=== PATIENT | male | born 1940 | race Caucasian/White ===

== ENCOUNTER 2022-05-19 18:30 | Inpatient (IN) | payer MEDICARE, SELFPAY ==
[2022-05-19] VITALS (7 sets, daily range): BP systolic 141–198; BP diastolic 86–115; PULSE 68–102; RESP 20–24; TEMP 36.9; O2SAT 91–95
--- NOTE | 2022-05-19 19:06 | XRR_ITS ---
PROCEDURE INFORMATION: Exam: XR Chest Exam date and time: 05/19/2022 7:25 PM Age: 81 years old Clinical indication: Injury or trauma; Fall; Blunt trauma (contusions or hematomas); Additional info: AMS TECHNIQUE: Imaging protocol: Radiologic exam of the chest. Views: 1 view. COMPARISON: No relevant prior studies available. FINDINGS: Lungs: Unremarkable. No consolidation. Pleural spaces: Unremarkable. No pleural effusion. No pneumothorax. Heart/Mediastinum: Unremarkable. No cardiomegaly. Bones/joints: Multiple rotator cuff repair anchors noted in the right humeral head. Visualized osseous structures are intact. XR/XR chest 1V portable [id number] IMPRESSION: No acute findings.
--- NOTE | 2022-05-19 19:06 | CTR_ITS ---
PROCEDURE INFORMATION: Exam: CT Head Without Contrast Exam date and time: 05/19/2022 7:34 PM Age: 81 years old Clinical indication: Injury or trauma; Fall; Blunt trauma (contusions or hematomas); Consciousness not specified; Altered mental status/memory loss; Age related cognitive decline; Additional info: AMS TECHNIQUE: Imaging protocol: Computed tomography of the head without contrast. Radiation optimization: All CT scans at this facility use at least one of these dose optimization techniques: automated exposure control; mA and/or kV adjustment per patient size (includes targeted exams where dose is matched to clinical indication); or iterative reconstruction. REPORTING DATA: Count of CT and Cardiac NM exams in prior 12 months: This patient has received 0 known CTs and 0 known cardiac nuclear medicine studies in the 12 months prior to the current study. COMPARISON: No relevant prior studies available. RADIATION DOSE METRICS: Total DLP (mGy-cm): 1425.98 FINDINGS: Brain: No hemorrhage. No edema. Moderate diffuse cerebral atrophy and sequela of chronic small vessel ischemic disease. No mass effect. Cerebral ventricles: No ventriculomegaly. Paranasal sinuses: Opacified right maxillary sinus. The rest of the paranasal sinuses are well pneumatized. Mastoid air cells: Visualized mastoid air cells are well aerated. Bones/joints: Unremarkable. No acute fracture. Soft tissues: Unremarkable. CT/CT head wo con* [id number] IMPRESSION: No acute intracranial abnormality.
--- NOTE | 2022-05-19 19:10 | W.ED.FALL ---
HPI - Fall General: Chief Complaint: Fall Stated Complaint: FALL Time Seen by Provider: 05/19/22 18:33 Source: patient and EMS History of Present Illness: 81-year-old gentleman who was last seen yesterday at home. He has found in the floor soaked in urine this evening in his home. He complains of some back pain. He is cold. He is a poor historian. No other complaints. He does not know how long he was down. complaint: fall Onset (ago): unknown Fall from: standing Fall witnessed: no Place fall occurred: home Loss of consciousness: Unsure Prolonged down time: yes (Likely) Symptoms prior to fall: other (Unknown) Context: other (Unknown) Associated symptoms-after fall: Reports confusion; Denies abdominal pain or chest pain Review of Systems General: Reports: ROS unobtainable due to mental status Card: Denies: chest pain GI: Denies: abdominal pain Neuro: Reports: confusion PFSH ED PFSH: Medical History (Updated 05/20/22 @ 23:40 by Bipin Powers DO) Diastolic dysfunction, left ventricle Dizziness Hypertension Surgical History (Updated 05/19/22 @ 23:28 by Dima Clemente MD) Surgical history unknown Social History (Updated 05/19/22 @ 23:29 by Dima Clemente MD) Smoking and tobacco status: former smoker Alcohol intake: never Substance/Drug Use: unknown Caregiver/support person: Yes Lives independently: Yes Household members: none Housing: House Marital status: / Physical Exam Const: GENERAL APPEARANCE: cooperative, lethargic, ill appearing and frail appearing NUTRITIONAL APPEARANCE: thin ORIENTATION/CONSCIOUSNESS: Yes lethargic HENMT: COMMON NORMALS: normocephalic and Normal external nose present HEAD & SCALP: normocephalic FACE & SINUS: face symmetric NOSE: Normal external nose present Eye: COMMON NORMALS: Equal, round and reactive pupils present and EOMs intact bilaterally PUPIL: Yes Equal, round and reactive pupils present Neck/C-Spine: GENERAL: Yes trachea midline CERVICAL SPINE: No pain with cervical ROM and No Cervical spine tenderness Chest: COMMONS NORMALS: normal inspection of the chest CHEST: Yes Symmetrical chest wall rise Resp: COMMON NORMALS: No use of accessory muscles EFFORT & INSPECTION: Yes tachypneic AUSCULTATION: diminished lung sounds Cardio: COMMON NORMALS: regular rate and regular rhythm RATE: regular rate RHYTHM: regular rhythm Extremity: NARRATIVE EXTREMITY EXAM: Exam bilateral lower extremities reveals cool extremities with mildly delayed capillary refill. Ulcers to 4 feet indicative of vascular disease. Neuro: RANDY COMA SCALE: document GCS findings [place] coma scale eye opening: Spontaneous Randy coma scale verbal response: Confused [place] coma scale motor response: Obey commands [place] coma scale total score: 14 SENSORIUM/ORIENTATION: Yes lethargic Psych: COMMON NORMALS: cooperative Course Vital Signs: Vital signs: Vital Signs Temperature 98.5 F 05/20/22 19:30 Pulse Rate 78 05/20/22 20:13 Respiratory Rate 16 05/20/22 20:13 Blood Pressure 108/70 05/20/22 19:30 Pulse Oximetry 93 05/20/22 20:13 Oxygen Delivery Me thod 05/20/22 20:13 Oxygen Flow Rate 2 05/20/22 20:13 MDM - Fall Medical Decision Making 81 year old gentleman who spent an unknown amount of time down on the floor. He is significantly weak period he has some mild mental status changes. He does not have focal symptoms of stroke. He seems to be relatively free of injury otherwise. He does have significant rhabdomyolysis, and will need admission. Hospitalist agrees to admit. Lab Data 05/19/22 19:21 05/19/22 19:21 Radiology Impressions Chest X-Ray 05/19/22 19:06 IMPRESSION: No acute findings. Head CT 05/19/22 19:06 IMPRESSION: No acute intracranial abnormality. Head MRI 05/20/22 09:33 IMPRESSION: 1. Diffusion-weighted imaging is normal. No acute infarct. No hemorrhage. 2. Moderate atrophy with severe chronic white matter disease. 3. RIGHT maxillary sinus disease. Chest/Abdomen/Pelvis CT 05/20/22 22:45 IMPRESSION: 1. Small LEFT greater than RIGHT pleural effusions. Bibasilar atelectasis. 2. Small amount of hematoma along the LEFT rectus sheath inferiorly. 3. No free fluid in the abdomen or pelvis. 4. Gonzalez catheter with enlarged prostate. 5. No other acute findings. Notified Dima Clemente MD at 05/20/2022 9:12 AM. Laboratory Results WBC 10.7 10^3/uL (4.0-10.0) H 05/19/22 19:21 RBC 5.35 10^6/uL (4.1-5.3) H 05/19/22 19:21 Hgb 15.8 g/dL (11.7-16.6) 05/19/22 19:21 Hct 47.4 % (42.0-52.0) 05/19/22 19:21 MCV 88.6 fl (80-94) 05/19/22 19:21 MCH 29.5 pg (28.0-34.0) 05/19/22 19: MCHC 33.3 g/dL (30.0-36.0) 05/19/22 19: RDW 12.1 % (12.1-15.1) 05/19/22 19: Plt Count 291 10^3/cmm (130-400) 05/19/22 19: MPV 9.6 fL (7.4-10.4) 05/19/22 19:21 Neut % (Auto) 88.0 % 05/19/22 19:21 Lymph % (Auto) 4.3 % 05/19/22 19:21 [place] % (Auto) 7.2 % 05/19/22 19:21 Eos % (Auto) 0.0 % 05/19/22 19: Baso % (Auto) 0.2 % 05/19/22 19: Neut # (Auto) 9.39 10^3/uL (1.8-7.7) H 05/19/22 19:21 Lymph # (Auto) 0.5 10^3/uL (0.8-4.8) L 05/19/22 19:21 [place] # (Auto) 0.8 10^3/uL (0.2-0.9) 05/19/22 19: Eos # (Auto) 0.0 10^3/uL (0.0-0.8) 05/19/22 19:21 Baso # (Auto) 0.0 10^3/uL (0.0-0.1) 05/19/22 19: Nucleated RBC % (auto) 0 % 05/19/22 19: Nucleated RBCs # 0.0 /100WBC 05/19/22 19:21 D-Dimer 1.67 ug/mIFEU (0-0.59) H 05/19/22 21:34 Sodium 134 mmol/L (136-145) L 05/19/22 19:21 Potassium 3.8 mmol/L (3.5-5.1) 05/19/22 19:21 Chloride 95 mmol/L (98-107) L 05/19/22 19:21 Carbon Dioxide 24 mmol/L (22-29) 05/19/22 19:21 Anion Gap 18.8 (5-19) 05/19/22 19:21 BUN 19 mg/dL (8-23) 05/19/22 19:21 Creatinine 0.6 mg/dL (0.7-1.2) L 05/19/22 19:21 GFR Calculation Not Reportable 05/19/22 19:21 Glucose 122 mg/dL (65-115) H 05/19/22 19:21 Calculated Osmolality 282 mOsm/kg (285-295) L 05/19/22 19:21 Lactate 2.5 mmol/L (0.5-2.2) H 05/19/22 19:21 Calcium 9.1 mg/dL (8.5-10.5) 05/19/22 19:21 Magnesium 1.8 mg/dL (1.7-2.3) 05/19/22 19:21 Total Bilirubin 2.1 mg/dL (0.15-1.2) H 05/19/22 19:21 AST 93 U/L (0-40) H 05/19/22 19:21 ALT 30 U/L (0-41) 05/19/22 19:21 Alkaline Phosphatase 108 U/L (40-130) 05/19/22 19:21 Creatine Kinase 3554 U/L (39-308) H* 05/19/22 19:21 Troponin T Baseline 22 ng/L (0-15) H 05/19/22 19:21 Troponin T 120 Minute 21.31 ng/L (0-15) H 05/19/22 21:34 Delta Troponin T -0.69 ABS# (0-10) L 05/19/22 21:34 C-Reactive Protein 78.8 mg/L (0.0-4.9) H 05/19/22 21:34 NT-Pro-B Natriuret Pep 2102 pg/mL (0-450) H 05/19/22 19:21 Total Protein 7.4 g/dL (6.6-8.7) 05/19/22 19:21 Albumin 4.1 g/dL (3.5-5.2) 05/19/22 19:21 Globulin 3.3 g/dL (1.3-4.6) 05/19/22 19:21 Vitamin B12 547 pg/mL (232-1245) 05/19/22 21:34 Folate 15.7 ng/mL (4.5-32.2) 05/19/22 21:34 Procalcitonin 0.14 ng/mL (0-0.5) 05/19/22 21:34 TSH 1.31 uIU/mL (0.27-4.20) 05/19/22 19:21 Urine Color Yellow (Yellow) 05/19/22 19:55 Urine Appearance Clear (CLEAR) 05/19/22 19:55 Urine pH 5 (5-7) 05/19/22 19:55 Ur Specific [place] 1.025 (1.005-1.030) 05/19/22 19:55 Urine Protein 1+ (Negative) H 05/19/22 19:55 Urine Glucose (UA) Norm (Normal) 05/19/22 19:55 Urine Ketones 3+ (Negative) H 05/19/22 19:55 Urine Blood 3+ (Negative) H 05/19/22 19:55 Urine Nitrate Negative (Negative) 05/19/22 19:55 Urine Bilirubin Neg (Negative) 05/19/22 19:55 Urine Urobilinogen Neg mg/dL (Negative) 05/19/22 19:55 Ur Leukocyte Esterase Negative (Negative) 05/19/22 19:55 Urine RBC 5-10 /hpf (0-2) H 05/19/22 19:55 Urine WBC 0-4 /hpf (0-5) H 05/19/22 19:55 Ur Squamous Epith Cells 0-4 /hpf (0-5) H 05/19/22 19:55 Amorphous Sediment Not Reportable 05/19/22 19:55 Urine Bacteria Trace /hpf (NONE) 05/19/22 19:55 Urine Mucus Trace /hpf 05/19/22 19:55 Salicylates < 0.3 mg/dL (3-10) L 05/19/22 21:34 Urine Opiates Screen Negative ng/mL (Negative) 05/19/22 19:55 Acetaminophen < 5.0 ug/mL (10-30) L 05/19/22 21:34 Ur Barbiturates Screen Negative ng/mL (Negative) 05/19/22 19:55 Ur Phencyclidine Scrn Negative ng/mL (Negative) 05/19/22 19:55 Ur Amphetamines Screen Negative ng/mL (Negative) 05/19/22 19:55 U Benzodiazepines Scrn Negative ng/mL (Negative) 05/19/22 19:55 Urine Cocaine Screen Negative ng/mL (Negative) 05/19/22 19:55 U Marijuana (THC) Screen Negative ng/mL (Negative) 05/19/22 19:55 Ethyl Alcohol < 10 mg/dL (0-10) 05/19/22 21:34 Discharge Plan Discharge Patient Disposition: Admitted As Inpatient Admit Provider: Dima Clemente Clinical Impression: Rhabdomyolysis, Physical deconditioning, Dehydration Condition: Stable Coding 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
[2022-05-19] MEDS: sodium chloride 0.9% 1,000 ML 999 ML IV (19:22)
[2022-05-19 19:38] LABS: Basophils % 0.2 %; Hematocrit 47.4 % (42.0-52.0); Hemoglobin 15.8 g/dL (11.7-16.6); Lymphocytes # 0.5 10^3/uL (0.8-4.8); Lymphocytes % 4.3 %; Mean Corpuscular HGB Conc 33.3 g/dL (30.0-36.0); Mean Corpuscular Hemoglobin 29.5 pg (28.0-34.0); Mean Corpuscular Volume 88.6 fl (80-94); Mean Platelet Volume 9.6 fL (7.4-10.4); Monocytes # 0.8 10^3/uL (0.2-0.9); Monocytes % 7.2 %; Neutrophils # 9.39 10^3/uL (1.8-7.7); Nucleated Red Blood Cells % 0 %; Platelet Count 291 10^3/cmm (130-400); Red Blood Count 5.35 10^6/uL (4.1-5.3); Red Cell Distribution Width 12.1 % (12.1-15.1); White Blood Count 10.7 10^3/uL (4.0-10.0)
[2022-05-19 19:57] LABS: Lactate (Lactic Acid level) 2.5 mmol/L (0.5-2.2)
[2022-05-19 20:09] LABS: Alanine Aminotransferase 30 U/L (0-41); Albumin Level 4.1 g/dL (3.5-5.2); Alkaline Phosphatase 108 U/L (40-130); Anion Gap 18.8 (5-19); Aspartate Amino Transferase 93 U/L (0-40); Blood Urea Nitrogen 19 mg/dL (8-23); Calcium 9.1 mg/dL (8.5-10.5); Carbon Dioxide 24 mmol/L (22-29); Chloride 95 mmol/L (98-107); Globulin 3.3 g/dL (1.3-4.6); Glucose 122 mg/dL (65-115); Magnesium 1.8 mg/dL (1.7-2.3); NT Pro B Type Natriuretic Pept 2102 pg/mL (0-450); Osmolality Calculated 282 mOsm/kg (285-295); Potassium 3.8 mmol/L (3.5-5.1); Sodium 134 mmol/L (136-145); Thyroid Stimulating Hormone 1.31 uIU/mL (0.27-4.20); Total Bilirubin 2.1 mg/dL (0.15-1.2); Total Protein 7.4 g/dL (6.6-8.7)
--- NOTE | 2022-05-19 20:10 | PC.NURSE ---
Patient having increased oral secretions and unable to get sputum up. Dr. Powers at bedside and attempted oral suctioning with fito with little success. Resp called for nasopharyngeal suctioning.
[2022-05-19 20:17] LABS: Add Urine Microscopic? YES; Bilirubin Urine Neg (Negative); Blood Urine 3+ (Negative); Glucose Urine UA Norm (Normal); Ketones Urine 3+ (Negative); Leukocyte Esterase Urine Negative (Negative); Nitrate Urine Negative (Negative); Protein Urine 1+ (Negative); Specific Gravity, Urine 1.025 (1.005-1.030); Urine Appearance Clear (CLEAR); Urine Color Yellow (Yellow); Urobilinogen Urine Neg (Negative); pH Urine 5 (5-7)
[2022-05-19 20:24] LABS: Creatine Phosphokinase 3554 U/L (39-308)
[2022-05-19] MEDS: metoprolol tartrate 1 mg/1 mL SDV 5 mL 5 MG IVP (20:36)
[2022-05-19 20:37] LABS: Troponin(5th) Baseline 22 ng/L (0-15)
[2022-05-19 20:42] LABS: Bacteria Urine TRACE /hpf; Mucus Urine TRACE /hpf; Squamous Epithelial Cell Urine 0-4 /hpf (0-5); WBC Urine 0-4 /hpf (0-5)
[2022-05-19 20:43] LABS: Add Urine Culture? No
--- NOTE | 2022-05-19 21:49 | P.HP_ITS ---
Providers/Chief Complaint Chief Complaint: FALL History of Present Illness History partially taken through conversation with ER physician and with patient. Rafy Marx is a 81 year old male with no known past medical history other than possible hypertension for which she does not take any medication presented to the ER today after he was found down by his landlady for unknown am ount of time soaked in urine today evening. Last known normal was yesterday. In the ER patient was complaining of back pain and feeling cold. On examination on [facility] floor patient is a lot more awake and alert, able to have slight conversation, slow to respond, slightly confused, alert and oriented to self, place. He is able to tell that he has been having multiple falls recently as he thinks his equilibrium is off. He does not remember how he fell this time but thinks he fell while he was working in his yard over the [employer]. He states he has a history of high blood pressure but does not take any medications. He does not follow-up with any family doctor. Currently denies any nausea, vomiting, headache, diarrhea, dysuria difficulty in breathing though he is on 3 L oxygen supplementation. Does not use any oxygen at baseline. He does complain of on and off dizziness which he attributes to daily use of Claritin. Review of Systems General: Reports: 10 or more systems reviewed and unremarkable except in HPI and below Const: Denies: fever(s), chills, body aches, change in appetite, change in weight, malaise, night sweats, diaphoresis, change in sleep pattern, daytime sleepiness or snoring Eyes: Denies: change in vision, blurry vision, photophobia, eye discomfort or eye discharge ENMT: Denies: throat pain, enlarged tonsils, hoarseness, mouth pain, oral sores, dry mouth, tinnitus, nasal congestion or post nasal drip Card: Denies: chest pain, palpitations, irregular heart rhythm, edema, swelling of feet/ankles, lightheadedness, syncope, pre-syncope, dyspnea on exertion, orthopnea, leg pain with exertion or acrocyanosis Resp: Denies: dyspnea, productive cough, non-productive cough, wheezing, stridor, pain on inspiration, change in phlegm color, hemoptysis or chest congestion GI: Denies: abdominal pain, nausea, vomiting, hematemesis, coffee ground emesis, dysphagia, heartburn, diarrhea, constipation, bloating, GI cramping, change in bowel habits, pain on defecation, hematochezia or melena : Denies: flank pain, difficulty urinating, dysuria, urinary frequency, urinary urgency, urinary hesitancy, urinary dribbling, difficulty starting urination, change in urine stream, nocturia or hematuria Musc: Denies: neck pain, back pain, extremity pain, joint pain, joint swelling, joint redness, joint stiffness or limited range of motion Neuro: Denies: headache(s), numbness in extremities, weakness in extremities, sensory changes, lack of coordination, difficulty walking, frequent falls, dizziness, vertigo, confusion, Slurred speech present, difficulty communicating thoughts or seizure-like activity Psych: Denies: anxiety, depression, mood swings, panic attacks, hopelessness or irritability Endo: Denies: polyuria, polydipsia, tired all the time, cold intolerance, excessive sweating, flushing or heat intolerance Josse/Lymph: Denies: easy bruising or easy bleeding All/Imm: Denies: tongue swelling, facial swelling or acute wheezing Medications/Allergies Allergies Allergy/AdvReac Type Severity Reaction Status Date / Time Penicillins Allergy Unknown Verified 05/19/22 19:25 PFSH Acute PFSH: Medical History (Updated 05/19/22 @ 23:28 by Dima Clemente MD) Dizziness Hypertension Surgical History (Updated 05/19/22 @ 23:28 by Dima Clemente MD) Surgical history unknown Social History (Updated 05/19/22 @ 23:29 by Dima Clemente MD) Smoking and tobacco status: former smoker Alcohol intake: never Substance/Drug Use: unknown Caregiver/support person: Yes Lives independently: Yes Household members: none Housing: House Marital status: / Vitals/I&O/Wt Last Vital Signs Temp 98.5 F 05/19/22 18:34 Pulse 68 05/19/22 21:17 Resp 24 H 05/19/22 21:17 BP 144/86 05/19/22 21:17 Pulse Ox 95 05/19/22 21:17 O2 Del Method 05/19/22 21:08 O2 Flow Rate 3 05/19/22 21:08 05/19/22 05/19/22 05/19/22 06:59 14:59 22:59 Intake Total 1000 / 1000 Balance 1000 / 1000 Physical Exam Narrative: EXAM NARRATIVE: General: No acute distress, slightly confused, slow to respond, hard of hearing, AAO x1-2, NC oxygen supplementation, disheveled HEENT: PERRLA, pupils bilaterally equal and reactive Chest: Bilateral bronchial breath sounds all over the lung larson, conductive airways sounds CVS: S1-S2 regular, no murmurs, no tachycardia, no gallops, no rubs Abdomen: Soft, nontender, no organomegaly, bowel sounds present, morbidly obese Neuro: No focal deficits, no facial deformity, Urinary Catheter Management: Gonzalez: Cath Placed During This Visit: yes Urinary Catheter Date of Insertion: 05/19/22 Urinary Catheter Time of Insertion: 20:04 Data 05/19/22 19:21 05/19/22 19:21 Micro: Microbiology 05/19/22 20:12 Blood Culture - Preliminary Blood SPECIMEN COLLECTED 05/19/22 19:21 Blood Culture - Preliminary Blood SPECIMEN COLLECTED A&P Assessment and plan (1) Fall: (2) Rhabdomyolysis: (3) Elevated lactic acid level: (4) Dehydration: (5) Dizziness: (6) Hypertension: Plan 81-year-old gentleman with unknown past medical history with a possible history of hypertension not followed up with physicians with history of recurrent falls presented to the ER when he once found down for unknown amount of time. Fall: CT head done in the ER ruled out any intracranial hemorrhage or acute stroke. Patient does complain of recurrent dizziness and falls. Will do MRI brain without contrast to rule out posterior circulation stroke versus possible press. Fall precaution, frequent reorientation, aspiration precaution. PT/OT/speech evaluation. Check vitamin B12, folate, TSH levels, D-dimer. Check respiratory viral panel, blood cultures. If D-dimer is negative will do CT chest and pelvis without contrast to rule out any internal injuries versus unknown source of infection. Hypoxia: Most likely in setting of aspiration from fall. No leukocytosis or fever for now. We will hold off on adding antibiotics. Incentive spirometry. Speech evaluation. N.p.o. till then. Cardiac angiogram to rule out CHF. Rhabdomyolysis: Most likely in setting of fall. Start on normal saline at 75 cc/h. Monitor for fluid overload. Monitor BMP daily. High blood pressure: Goal blood pressure less than 140/90 mmHg. We will start antihypertensives as for goal blood pressures. Analgesia: Tylenol as needed Glycemic control: No known history of diabetes. Check A1c. Hypoglycemia protocol Nutrition: Clear liquid diet. Advance as per speech evaluation. CODE STATUS: Discussed in detail with the patient. Full code. He lives by himself. He would want his landlady MsJavier Lou to make medical decisions in case he is not able to make his own. PUD prophylaxis: Famotidine DVT prophylaxis: Heparin 5000 every 12 hourly. Will need to do medical reconciliation possibly with getting in touch with his house lady to find out about primary care physician or pharmacy. Discharge planning: Given recurrent falls and social discord with patient living by himself patient is at a higher risk of fatal fall if he lives alone. Patient is agreeable for SNF placement. Case management consultation. Admit to [facility] with telemetry. This documentation was created by [employer] inspector materials and processes software. Every effort was made to ensure accuracy of inspector materials and processes. Any obvious errors or omissions should be clarified with the author of the document. Attestations Medical Necessity Statement*: Patient for more than 2 midnights for management of recurrent falls, hypoxia and rhabdomyolysis in setting of repeat fall while safe discharge planning is sought as patient is at high risk of fatal fall at home and Moderate Time for a total of 70 minutes, includes reviewing past or interval history, examining/interviewing patient, placing orders, counseling patient/family/other support, updating patient/family/other support, discussing plan of care with staff, communicating with other healthcare providers, documenting encounter and coordinating care Diagnoses Fall W19.XXXA Rhabdomyolysis M62.82 Elevated lactic acid level R79.89 Dehydration E86.0 Dizziness R42 Hypertension I10
[2022-05-19 22:29] LABS: Cocaine Screen Urine Negative (Negative); THC Screen Urine Negative (Negative)
[2022-05-19 22:30] LABS: Amphetamines Screen Urine Negative (Negative); Barbiturates Screen Urine Negative (Negative); Benzodiazepines Screen Urine Negative (Negative); Opiate Screen Urine Negative (Negative); PCP Screen Urine Negative (Negative)
[2022-05-19 22:37] LABS: Troponin 5 2HR 21.31 ng/L (0-15)
[2022-05-19 22:38] LABS: C Reactive Protein 78.8 mg/L (0.0-4.9); Troponin 5 2HR Delta -0.69 ABS# (0-10)
[2022-05-19 22:39] LABS: Acetaminophen < 5.0 ug/mL (10-30); Alcohol Level < 10 mg/dL (0-10); Salicylate < 0.3 mg/dL (3-10)
[2022-05-19 22:41] LABS: D Dimer 1.67 ug/mIFEU (0-0.59)
[2022-05-19 22:45] LABS: Procalcitonin 0.14 ng/mL (0-0.5)
[2022-05-20] VITALS (11 sets, daily range): BP systolic 108–142; BP diastolic 70–86; PULSE 75–89; RESP 16–20; TEMP 36.7–38.2; O2SAT 92–98
[2022-05-20 00:15] LABS: Adenovirus Not Detected (NOT DETECT); Chlamydia Pneumoniae Not Detected (NOT DETECT); Coronavirus 229E,HKU1,NL63,OC4 Not Detected (NOT DETECT); Human Metapneumovirus Not Detected (NOT DETECT); Human Rhinovirus/Enterovirus Not Detected (NOT DETECT); Influenza A Not Detected (NOT DETECT); Influenza A H1 Not Detected (NOT DETECT); Influenza A H1-2009 Not Detected (NOT DETECT); Influenza A H3 Not Detected (NOT DETECT); Influenza B Not Detected (NOT DETECT); Mycoplasma Pneumoniae Not Detected (NOT DETECT); Parainfluenza Virus Type 1 Not Detected (NOT DETECT); Parainfluenza Virus Type 2 Not Detected (NOT DETECT); Parainfluenza Virus Type 3 Not Detected (NOT DETECT); Parainfluenza Virus Type 4 Not Detected (NOT DETECT); Respiratory Syncytial Virus A Not Detected (NOT DETECT); Respiratory Syncytial Virus B Not Detected (NOT DETECT); SARS-COV-2 Detected (NOT DETECT)
[2022-05-20] MEDS: sodium chloride 0.9% 1,000 ML 75 ML IV ×2 (01:42→14:05)
[2022-05-20] MEDS: heparin 5,000 unit/mL INJ 1 mL 5000 UNIT SUBCUT ×2 (01:42→10:32)
[2022-05-20] MEDS: remdesivir 200 MG in sodium chloride 0.9% (100 ml) 60 ML 100 MG IV (01:43)
[2022-05-20] MEDS: dexamethasone 10 mg/mL INJ 6 MG IVP (01:43)
[2022-05-20] MEDS: scopolamine 1.5 Patch 1 PATCH TRANSDERMA (01:46)
[2022-05-20 02:24] LABS: Basophils % 0.1 %; Hematocrit 42.9 % (42.0-52.0); Hemoglobin 14.2 g/dL (11.7-16.6); Lymphocytes # 0.8 10^3/uL (0.8-4.8); Lymphocytes % 7.2 %; Mean Corpuscular HGB Conc 33.1 g/dL (30.0-36.0); Mean Corpuscular Hemoglobin 29.6 pg (28.0-34.0); Mean Corpuscular Volume 89.6 fl (80-94); Mean Platelet Volume 9.7 fL (7.4-10.4); Monocytes # 0.9 10^3/uL (0.2-0.9); Monocytes % 8.9 %; Neutrophils # 8.65 10^3/uL (1.8-7.7); Neutrophils % 83.6 %; Nucleated Red Blood Cells % 0 %; Platelet Count 284 10^3/cmm (130-400); Red Blood Count 4.79 10^6/uL (4.1-5.3); Red Cell Distribution Width 12.2 % (12.1-15.1); White Blood Count 10.4 10^3/uL (4.0-10.0)
[2022-05-20 02:48] LABS: Troponin 5 6HR 22.01 ng/L (0-15)
[2022-05-20 02:53] LABS: Alanine Aminotransferase 29 U/L (0-41); Albumin Level 3.3 g/dL (3.5-5.2); Alkaline Phosphatase 79 U/L (40-130); Anion Gap 19.8 (5-19); Aspartate Amino Transferase 88 U/L (0-40); Blood Urea Nitrogen 24 mg/dL (8-23); Calcium 8.3 mg/dL (8.5-10.5); Carbon Dioxide 22 mmol/L (22-29); Chloride 98 mmol/L (98-107); Chol HDL Ratio 2.65 mg/dL (1.0-5.00); Cholesterol 146 mg/dL (0-200); Globulin 2.8 g/dL (1.3-4.6); Glucose 140 mg/dL (65-115); HDL Cholesterol 55 mg/dL (60-100); LDL Cholesterol Calculated 81 mg/dL (50-129); LDL HDL Ratio 1.47 RATIO (0.00-3.22); Osmolality Calculated 288 mOsm/kg (285-295); Phosphorus 4.1 mg/dL (2.5-4.5); Potassium 3.8 mmol/L (3.5-5.1); Sodium 136 mmol/L (136-145); Total Bilirubin 1.6 mg/dL (0.15-1.2); Total Protein 6.1 g/dL (6.6-8.7); Triglycerides 48 mg/dL (0-150)
[2022-05-20 02:58] LABS: Estmated Average Glucose 91; Hemoglobin A1C 4.8 % (4.0-6.0)
[2022-05-20 03:00] LABS: Troponin 5 6HR Delta 0.01 ng/L (0-12)
[2022-05-20 04:57] LABS: Vitamin B12 547 pg/mL (232-1245)
[2022-05-20 04:59] LABS: Folate Level 15.7 ng/mL (4.5-32.2)
--- NOTE | 2022-05-20 05:25 | ECG_ITS ---
[facility] Test Date: 2022-05-20 Pat Name: Rafy Marx Department: Room: 251 Gender: Male Retail Service Lead Merchandiser: : 1940 Requested By: Brigitte Figueredo Order Number: [id number] Kateryna MD: Julien Rodriguez M.D. Measurements Intervals [place] Rate: 79 P: 20 AR: 195 QRS: -75 QRSD: 158 T: 82 QT: 453 QTc: 520 Interpretive Statements SINUS RHYTHM INTRAVENTRICULAR CONDUCTION DELAY [130+ ms QRS DURATION] LATERAL MYOCARDIAL INFARCTION , PROBABLY RECENT [40+ ms Q WAVE AND/OR ST/T ABNORMALITY IN I/aVL/V5/V6] No previous ECG available for comparison Electronically Signed On 05-20-2022 11:20:45 BUSINESS DEVELOPER by Julien Rodriguez M.D. [email or web address]
[2022-05-20] MEDS: ipratropium-albuterol 3 mL Neb INHALATION ×3 (07:33→20:13)
[2022-05-20] MEDS: budesonide 0.5 mg/2 mL Neb INHALATION ×2 (09:14→20:13)
--- NOTE | 2022-05-20 09:33 | MR_ITS ---
WS: [id number] MRI BRAIN WITHOUT CONTRAST HISTORY: Dizziness, fall COMPARISON: CT head 05/19/2022 TECHNIQUE: Diffusion imaging, multiplanar T1, T2 and FLAIR imaging obtained. Normal diffusion-weighted imaging. No acute infarct. Moderate bilateral cerebral and cerebellar atrophy. There is extensive chronic white matter disease. White matter disease is confluent and patchy surrounding the ventricles and the subcortical white mat ter. No hemorrhage is identified. Ventricles and extra-axial spaces are prominent on the basis of central and peripheral atrophy. No inferior displacement of cerebellar tonsils. The sella turcica and pituitary gland are unremarkabl e. Dural venous sinuses and false pass of Hernandez demonstrate no abnormality on this unenhanced studies. Paranasal sinuses: Marked mucoperiosteal thickening RIGHT maxillary sinus. Mastoid air cells: Small bilateral mastoid air cell effusions, LEFT greater than RIGHT. Calvarium and scalp: Intact. MR/MR head wo con* [id number] IMPRESSION: 1. Diffusion-weighted imaging is normal. No acute infarct. No hemorrhage. 2. Moderate atrophy with severe chronic white matter disease. 3. RIGHT maxillary sinus disease.
[2022-05-20 11:58] LABS: Glucose Point of Care 94 mg/dL (70-110)
--- NOTE | 2022-05-20 13:26 | PM.PN ---
Subjective Subjective: No acute events overnight. On examination today patient seems laying comfortably in bed. States he is fairly weak. Complaining of sore throat. Could barely walk with physical therapy. Patient having acute cough on even taking a sip of water. Currently on 3 L saturating more than 90%. Patient himself denies any nausea, vomiting, headache. Vitals/I&O/Wt Last Vital Signs Temp 98.6 F 05/20/22 12:00 Pulse 85 05/20/22 12:00 Resp 16 05/20/22 12:00 BP 127/81 05/20/22 12:00 Pulse Ox 93 05/20/22 12:00 O2 Del Method 05/20/22 12:00 O2 Flow Rate 3 05/20/22 08:00 05/19/22 05/20/22 05/20/22 22:59 06:59 14:59 Intake Total 1000 / 1000 100 / 1100 Output Total 600 / 600 Balance 1000 / 1000 -500 / 500 Weight last 48 hrs Weight 84.232 kg Physical Exam Narrative: General: No acute distress, slightly confused, slow to respond, hard of hearing, AAO x 2-3, NC oxygen supplementation, HEENT: PERRLA, pupils bilaterally equal and reactive Chest: Bilateral bronchial breath sounds all over the lung larson, conductive airways sounds CVS: S1-S2 regular, no murmurs, no tachycardia, no gallops, no rubs Abdomen: Soft, nontender, no organomegaly, bowel sounds present, morbidly obese Neuro: No focal deficits, no facial deformity, Urinary Catheter Management: Gonzalez: Cath Placed During This Visit: yes Reason for Continuing Indwelling Catheter: Other Urinary Catheter Date of Insertion: 05/19/22 Urinary Catheter Time of Insertion: 20:04 Data 05/20/22 01:42 05/20/22 01:42 Micro: Microbiology 05/19/22 20:12 Blood Culture - Preliminary Blood SPECIMEN COLLECTED 05/19/22 19:21 Blood Culture - Preliminary Blood SPECIMEN COLLECTED A&P Assessment and plan (1) Fall: (2) Rhabdomyolysis: (3) COVID-19: (4) Dizziness: (5) Hypertension: (6) Physical deconditioning: (7) Rectus sheath hematoma: (8) Diastolic dysfunction, left ventricle: (9) Elevated lactic acid level: (10) Dehydration: Plan 81-year-old gentleman with unknown past medical history with a possible history of hypertension not followed up with physicians with history of recurrent falls presented to the ER when he once found down for unknown amount of time. Fall: CT head done in the ER ruled out any intracranial hemorrhage or acute stroke. Patient does complain of recurrent dizziness and falls. Will do MRI brain without contrast to rule out posterior circulation stroke versus possible press. Fall precaution, frequent reorientation, aspiration precaution. PT/OT/speech evaluation. B12, folate, TSH levels appreciated. Patient found to be COVID-[address] chest abdomen pelvis results appreciated. Concerning for rectus sheath hematoma. No further injury seen. Does have bilateral mild pleural effusion. Hypoxia secondary to COVID-19 pneumonia along with possibility of aspiration pneumonia: Mild disease. Oxygen supplementation keeping saturation over 88%. Dexamethasone 6 mg daily. Remdesivir to finish a 3-5 day course. Vitamin C, zinc. DuoNeb every 6 hour, budesonide twice daily Pulmonary toilet with incentive spirometry, flutter valve. We will monitor inflammatory markers including CRP, D-dimer every 48 hours. CTA negative for pulmonary embolism. Patient does have rectus sheath hematoma. We will hold off on any further medical anticoagulation. Check sputum culture, procalcitonin, urine Legionella, bacterial antigen, blood culture. Procalcitonin negative. Low suspicion of bacterial infection for now. For now we will hold off on any further antibiotics. Given hypoxia will try to keep patient as negative as possible. Echocardiogram shows an EF of 55 to 60% with grade 1 diastolic dysfunction, mild TR. Patient is slightly dehydrated along with rhabdomyolysis. Continue with IV fluids at 75 cc/h. Watch for fluid overload. Strict input output charting, daily weights. Rhabdomyolysis: Most likely in setting of fall. Start on normal saline at 75 cc/h. Monitor for fluid overload. Monitor BMP daily. High blood pressure: Goal blood pressure less than 140/90 mmHg. We will start antihypertensives as for goal blood pressures. Analgesia: Tylenol as needed Glycemic control: A1c 4.8. Not needed. Nutrition: N.p.o. Advance as per speech evaluation. CODE STATUS: Discussed in detail with the patient. Full code. He lives by himself. He would want his landlady Ms. Lou to make medical decisions in case he is not able to make his own. PUD prophylaxis: Famotidine DVT prophylaxis: Heparin 5000 every 12 hourly. Will need to do medical reconciliation possibly with getting in touch with his house lady to find out about primary care physician or pharmacy. Discharge planning: Given recurrent falls and social discord with patient living by himself patient is at a higher risk of fatal fall if he lives alone. Patient is agreeable for SNF placement. Case management consultation. Continue care at [facility] with telemetry This documentation was created by [employer] smoking pipes cleaner software. Every effort was made to ensure accuracy of smoking pipes cleaner. Any obvious errors or omissions should be clarified with the author of the document. Attestations Medical Necessity Statement*: Requires further hospitalization for management of weakness leading to recurrent fall, rhabdomyolysis in an elderly with COVID-19 while safe discharge planning is sought as patient is at a high risk of recurrent falls and even at home. Diagnoses Fall W19.XXXA Rhabdomyolysis M62.82 COVID-19 U07.1 Dizziness R42 Hypertension I10 Physical deconditioning R53.81 Rectus sheath hematoma S30.1XXA Diastolic dysfunction, left ventricle I51.9 Elevated lactic acid level R79.89 Dehydration E86.0
[2022-05-20 14:22] LABS: Iron 17 ug/dL (59-158); Percent Saturation 6.6 % (20-50); Total Iron Binding Capacity 255 mcg/dl; Unsaturated Iron Binding 238 ug/dL (112-347)
[2022-05-20] MEDS: acetaminophen 325 mg Tablet 650 MG PO (15:26)
[2022-05-20 16:36] LABS: Glucose Point of Care 115 mg/dL (70-110)
[2022-05-20] MEDS: ferrous gluconate 324 mg Tablet PO (17:37)
[2022-05-20] MEDS: docusate sodium 100 mg Capsule PO (17:37)
--- NOTE | 2022-05-20 21:48 | USCV_ITS ---
Rafy Marx Age: 81 Gender: M : 1940 Exam Date: 05/20/2022 02:15 Ordering Phys: Dima Clemente MD Technologist: Alea Anglin Exam Location: [facility] [place] Indication: COVID CHF BP: 144 / 86 HR: 88 Rhythm: Sinus Technical Quality: Technically difficult study MEASUREMENTS (Male / Female) Normal Values 2D ECHO LV Diastolic Diameter PLAX 3.4 cm 4.2 - 5.9 / 3.9 - 5.3 cm LV Systolic Diameter PLAX 2.2 cm LV Chamber Size 2.9 cm IVS Diastolic Thickness 1.3 cm 0.6 - 1.0 / 0.6 - 0.9 cm IVS Systolic Thickness 1.1 cm LVPW Diastolic Thickness 1.3 cm 0.6 - 1.0 / 0.6 - 0.9 cm LVPW Systolic Thickness 1.5 cm RV Chamber Size 4.0 cm LVOT Diameter 2.1 cm LV Ejection Fraction 2D Teich 65.3 % LV Ejection Fraction MOD 2C 68.0 % LV Ejection Fraction 2C AL 69.7 % LA Diameter 3.0 cm LA Width 2.9 cm LA Height 3.6 cm RA Width 4.5 cm RA Height 4.3 cm Aorta at Sinotubular Diameter 3.3 cm IVC Diameter 1.6 cm M-MODE Aortic Annulus Diameter 3.6 cm LA Ao Ratio MM 0.9 MV E Point Septal Separation 0.9 cm DOPPLER AV Peak Velocity 147.0 cm/s LVOT Peak Velocity 101.0 cm/s AV Area Cont Eq vti 2.4 cm squared AV Area Cont Eq pk 2.3 cm squared MV Area PHT 3.9 cm squared Mitral E to A Ratio 0.7 MV E' Velocity 40.5 cm/s Mitral E to MV E' Ratio 11.8 Mitral E to LV E' Lateral Ratio 10.5 Mitral E to LV E' Septal Ratio 13.5 TR Peak Velocity 124.4 cm/s TR Peak Gradient 6.2 mmHg TR Mean Velocity 84.5 cm/s TR Mean Gradient 3.3 mmHg TR Velocity Time Integral 26.8 cm TV Peak E Velocity 67.0 cm/s RV Acceleration Time 0.2 s RV Ejection Time 0.3 s RV AcT/ET 0.5 FINDINGS Left Ventricle Technically limited quality echocardiogram because of poor ultrasonic windows. LV systolic function is normal with EF of 55 to 60%. No regional wall motion abnormalities are seen. Grade 1 diastolic dysfunction. Right Ventricle Not well visualized Right Atrium Not well visualzied Left Atrium Not well visualized Mitral Valve Grossly noraml Aortic Valve Not well visualized. No significant stenosis or regurgitation. Tricuspid Valve Mild tricuspid regurgitation. Pulmonary artery systolic pressure is normal. Pulmonic Valve Not well visualized Pericardium Not well visualized Aorta Not well visualized IVC Not well visualized CONCLUSIONS Technically limited quality echocardiogram because of poor ultrasonic windows. LV systolic function is normal with EF of 55 to 60%. Grade 1 diastolic dysfunction. Mild tricuspid regurgitation. No comparison studies are available Julein Rodriguez MD (Electronically Signed) Final Date: 20 May 2022 13:09 S
--- NOTE | 2022-05-20 22:45 | CT_ITS ---
WS: [id number] CT CHEST, ABDOMEN, AND PELVIS TECHNIQUE: Noncontrast CT of the chest, abdomen, and pelvis with coronal and sagittal reformatted heidi ges. CLINICAL INFORMATION: Fall,sob, r/o injury COMPARISON: None. DLP: 1048.[address] scans at [facility] use at least one of these dose optimization techniques: automated e xposure control; mA and/or kV adjustment per patient size (includes targeted exams where dose is matc hed to clinical indication); or iterative reconstruction. CT CHEST: Shallow inspiration. Small LEFT and tiny RIGHT pleural effusions with bibasilar atelectasis. Chronic emphysematous changes. Aortic calcification. Coronary calcification. Small esophageal hiatal hernia. No mediastinal or hilar lymphadenopathy. Thoracic curve. Thoracic kyphosis. hronic appearing kitty florence fractures with anterior wedging T12 and L1. CT ABDOMEN AND PELVIS: Noncontrast liver is normal. Slight fluid distention of the gallbladder which otherwise appears ramo l. Normal noncontrast spleen. Small esophageal hiatal hernia. Adrenal glands are normal. Normal nonco ntrast pancreas. No hydronephrosis in either kidney. Gonzalez catheter. Tortuous abdominal aorta. Normal caliber abdominal aorta. Aortic calcification. No free fluid in the abdomen or pelvis. Enlarged prostate with calcification. Small amount of hematoma along the LEFT rect [place] sheath. CT/[place] [id number] IMPRESSION: 1. Small LEFT greater than RIGHT pleural effusions. Bibasilar atelectasis. 2. Small amount of hematoma along the LEFT rectus sheath inferiorly. 3. No free fluid in the abdomen or pelvis. 4. Gonzalez catheter with enlarged prostate. 5. No other acute findings. Notified Dima Clemente MD at 05/20/2022 9:12 AM.
[2022-05-21] VITALS (13 sets, daily range): BP systolic 124–153; BP diastolic 80–94; PULSE 74–94; RESP 15–20; TEMP 36.8–37; O2SAT 92–95
[2022-05-21] MEDS: dexamethasone 10 mg/mL INJ 6 MG IVP ×2 (02:03→23:54)
[2022-05-21] MEDS: sodium chloride 0.9% 1,000 ML 75 ML IV ×2 (02:09→14:55)
[2022-05-21] MEDS: ipratropium-albuterol 3 mL Neb INHALATION ×4 (02:24→20:30)
[2022-05-21] MEDS: remdesivir 100 MG in sodium chloride 0.9% (100 ml) 80 ML IV (05:26)
[2022-05-21 06:34] LABS: Hematocrit 41.7 % (42.0-52.0); Hemoglobin 13.9 g/dL (11.7-16.6); Mean Corpuscular HGB Conc 33.3 g/dL (30.0-36.0); Mean Corpuscular Hemoglobin 29.8 pg (28.0-34.0); Mean Corpuscular Volume 89.5 fl (80-94); Mean Platelet Volume 9.5 fL (7.4-10.4); Platelet Count 232 10^3/cmm (130-400); Red Blood Count 4.66 10^6/uL (4.1-5.3); Red Cell Distribution Width 12.7 % (12.1-15.1); White Blood Count 7.6 10^3/uL (4.0-10.0)
[2022-05-21 06:52] LABS: Alanine Aminotransferase 28 U/L (0-41); Alkaline Phosphatase 57 U/L (40-130); Anion Gap 13.9 (5-19); Aspartate Amino Transferase 61 U/L (0-40); Blood Urea Nitrogen 30 mg/dL (8-23); Calcium 8.2 mg/dL (8.5-10.5); Carbon Dioxide 24 mmol/L (22-29); Chloride 104 mmol/L (98-107); Globulin 2.8 g/dL (1.3-4.6); Glucose 130 mg/dL (65-115); Osmolality Calculated 294 mOsm/kg (285-295); Potassium 3.9 mmol/L (3.5-5.1); Sodium 138 mmol/L (136-145); Total Bilirubin 1.6 mg/dL (0.15-1.2); Total Protein 5.8 g/dL (6.6-8.7)
[2022-05-21 06:59] LABS: Slide Review Slide Review Perform
[2022-05-21 07:00] LABS: Creatine Phosphokinase 1517 U/L (39-308)
[2022-05-21 07:01] LABS: Absolute Segmented Neutrophil 3.6 10/cmm (1.6-7.1); Band Neutrophils Absolute 3.7 10^3/cmm (0.0-1.2); Lymphocytes 2 %; Monocytes Absolute 0.1 10^3/cmm (0.1-0.6); Segmented Neutrophils 48 %; Total Cells Counted 100 (0-100)
[2022-05-21 07:02] LABS: Absolute Neutrophil 7.4 10^3/cmm (1.4-6.5); Eosinophils 0 %; Lymphocytes Absolute 0.2 10^3/cmm (1.2-3.4); Platelet Estimate Normal (Normal)
[2022-05-21] MEDS: budesonide 0.5 mg/2 mL Neb INHALATION ×2 (08:32→20:31)
[2022-05-21] MEDS: ferrous gluconate 324 mg Tablet PO ×2 (10:09→18:35)
[2022-05-21] MEDS: docusate sodium 100 mg Capsule PO ×2 (10:09→18:35)
--- NOTE | 2022-05-21 10:59 | CT_ITS ---
WS: [id number] CT CERVICAL TRAUMA TECHNIQUE: Noncontrast CT of the cervical spine with coronal and sagittal reformatted images. CLINICAL INFORMATION: Fall COMPARISON: None. DLP: 180.[address] scans at [facility] use at least one of these dose optimization techniques: automated e xposure control; mA and/or kV adjustment per patient size (includes targeted exams where dose is matc hed to clinical indication); or iterative reconstruction. FINDINGS: Mild cervical curve. Moderate spondylitic changes cervical spine. Disc space narrowing worse at C5-C6 and C6-C7. Mild central canal stenosis C4-C5. Normal craniocervical junction. Normal C1-C2 articulat ion. Dens is normal in appearance. Normal occipital condyles. No high-grade spinal canal narrowing. N ormal C1 ring. No evidence of acute fracture or dislocation. Normal prevertebral soft tissues. Mastoids air cells are well aerated. CT/CT cervical spin wo con* [id number] IMPRESSION: No evidence of acute fracture or dislocation. Normal cervical spine.
[2022-05-21] MEDS: amlodipine 5 mg Tablet PO (11:25)
--- NOTE | 2022-05-21 15:31 | PM.PN ---
Subjective Subjective: No acute overnight. Patient denies any nausea, vomiting, headache. Has remained hemodynamically stable overnight. Requiring 3 L oxygen supplementation. Care discussed in detail with patient's SHANNON/val at bedside. Patient working with physical therapy and Occupational Therapy during examination. Awake and alert. Significantly weak. States sore throat is better. Vitals/I&O/Wt Last Vital Signs Temp 98.5 F 05/21/22 08:18 Pulse 90 05/21/22 13:36 Resp 18 05/21/22 13:27 BP 153/94 05/21/22 08:18 Pulse Ox 94 05/21/22 13:27 O2 Del Method 05/21/22 13:27 O2 Flow Rate 4 05/21/22 13:27 05/21/22 05/21/22 05/21/22 06:59 14:59 22:59 Intake Total 1005 / 1933.75 1437.5 / 1437.5 Output Total 350 / 1050 Balance 655 / 883.75 1437.5 / 1437.5 Weight last 48 hrs Weight 83.007 kg Weight 84.232 kg Physical Exam Narrative: General: No acute distress, slightly confused, slow to respond, hard of hearing, AOx3, NC oxygen supplementation, HEENT: PERRLA, pupils bilaterally equal and reactive Chest: Bilateral bronchial breath sounds all over the lung larson, conductive airways sounds CVS: S1-S2 regular, no murmurs, no tachycardia, no gallops, no rubs Abdomen: Soft, nontender, no organomegaly, bowel sounds present, morbidly obese Neuro: No focal deficits, no facial deformity, Urinary Catheter Management: Gonzalez: Cath Placed During This Visit: yes Reason for Continuing Indwelling Catheter: Other Urinary Catheter Date of Insertion: 05/19/22 Urinary Catheter Time of Insertion: 20:04 Data 05/21/22 06:26 05/21/22 06:26 Micro: Microbiology 05/20/22 19:55 Bacterial Antigens - Final Urine Kidney 05/20/22 19:55 Legionella Urinary Antigen - Final Unknown Source 05/19/22 20:12 Blood Culture - Preliminary Blood NEGATIVE TO DATE 05/19/22 19:21 Blood Culture - Preliminary Blood NEGATIVE TO DATE A&P Assessment and plan (1) Fall: (2) Rhabdomyolysis: (3) COVID-19: (4) Dizziness: (5) Hypertension: (6) Physical deconditioning: (7) Rectus sheath hematoma: (8) Diastolic dysfunction, left ventricle: (9) Elevated lactic acid level: (10) Dehydration: Plan 81-year-old gentleman with unknown past medical history with a possible history of hypertension not followed up with physicians with history of recurrent falls presented to the ER when he once found down for unknown amount of time. Fall: CT head done in the ER ruled out any intracranial hemorrhage or acute stroke. Patient does complain of recurrent dizziness and falls. Will do MRI brain without contrast to rule out posterior circulation stroke versus possible press. Fall precaution, frequent reorientation, aspiration precaution. PT/OT/speech evaluation. B12, folate, TSH levels appreciated. Patient found to be COVID-[address] chest abdomen pelvis results appreciated. Concerning for rectus sheath hematoma. No further injury seen. Does have bilateral mild pleural effusion. Hypoxia secondary to COVID-19 pneumonia along with possibility of aspiration pneumonia: Mild disease. Oxygen supplementation keeping saturation over 88%. Dexamethasone 6 mg daily. Remdesivir to finish a 3-5 day course. Vitamin C, zinc. DuoNeb every 6 hour, budesonide twice daily Pulmonary toilet with incentive spirometry, flutter valve. We will monitor inflammatory markers including CRP, D-dimer every 48 hours. CTA negative for pulmonary embolism. Patient does have rectus sheath hematoma. We will hold off on any further medical anticoagulation. Check sputum culture, procalcitonin, urine Legionella, bacterial antigen, blood culture. Procalcitonin negative. Low suspicion of bacterial infection for now. For now we will hold off on any further antibiotics. Given hypoxia will try to keep patient as negative as possible. Echocardiogram shows an EF of 55 to 60% with grade 1 diastolic dysfunction, mild TR. Patient is slightly dehydrated along with rhabdomyolysis. Continue with IV fluids at 75 cc/h. Watch for fluid overload. Strict input output charting, daily weights. Rhabdomyolysis: Most likely in setting of fall. Start on normal saline at 75 cc/h. Monitor for fluid overload. Monitor BMP daily. High blood pressure: Goal blood pressure less than 140/90 mmHg. We will start antihypertensives as for goal blood pressures. Analgesia: Tylenol as needed Glycemic control: A1c 4.8. Not needed. Nutrition: Dysphagia level 4 diet. CODE STATUS: Discussed in detail with the patient. Full code. He lives by himself. He would want his landlady MsJavier Lou to make medical decisions in case he is not able to make his own. PUD prophylaxis: Famotidine DVT prophylaxis: Heparin 5000 every 12 hourly. Will need to do medical reconciliation possibly with getting in touch with his house lady to find out about primary care physician or pharmacy. Discharge planning: Patient and patient's family agreeable for SNF placement. Choices taken. Continue care at [facility] with telemetry Plan for the day: Leukocytosis has resolved, PK trending down. Renal function stable. Continue with PT/OT/speech evaluation. Advance diet as per speech therapy. Currently on stage IV dysphagia level diet. Wean oxygen keeping saturation over 92%. Add amlodipine 5 mg oral daily for goal blood pressure of 140/90 mmHg. Uptitrate medications accordingly. CPK trending down. Continue with IV fluids at 75 cc/h. This documentation was created by [employer] repair clerk software. Every effort was made to ensure accuracy of repair clerk. Any obvious errors or omissions should be clarified with the author of the document. Attestations Medical Necessity Statement*: Requires further hospitalization for management of rhabdomyolysis, COVID-19 in a patient was admitted post fall, severe physical deconditioning while safe discharge planning is sought. Diagnoses Fall W19.XXXA Rhabdomyolysis M62.82 COVID-19 U07.1 Dizziness R42 Hypertension I10 Physical deconditioning R53.81 Rectus sheath hematoma S30.1XXA Diastolic dysfunction, left ventricle I51.9 Elevated lactic acid level R79.89 Dehydration E86.0
[2022-05-22] VITALS (12 sets, daily range): BP systolic 123–146; BP diastolic 74–85; PULSE 70–93; RESP 15–20; TEMP 36.4–36.9; O2SAT 92–97
[2022-05-22] MEDS: ipratropium-albuterol 3 mL Neb INHALATION ×4 (01:52→20:29)
[2022-05-22] MEDS: sodium chloride 0.9% 1,000 ML 75 ML IV ×2 (04:18→20:00)
[2022-05-22 05:21] LABS: Hematocrit 40.9 % (42.0-52.0); Hemoglobin 13.2 g/dL (11.7-16.6); Lymphocytes # 0.5 10^3/uL (0.8-4.8); Lymphocytes % 5.3 %; Mean Corpuscular HGB Conc 32.3 g/dL (30.0-36.0); Mean Corpuscular Hemoglobin 29.6 pg (28.0-34.0); Mean Corpuscular Volume 91.7 fl (80-94); Mean Platelet Volume 9.9 fL (7.4-10.4); Monocytes # 0.5 10^3/uL (0.2-0.9); Monocytes % 5.9 %; Neutrophils # 7.72 10^3/uL (1.8-7.7); Neutrophils % 88.6 %; Nucleated Red Blood Cells % 0 %; Platelet Count 240 10^3/cmm (130-400); Red Blood Count 4.46 10^6/uL (4.1-5.3); Red Cell Distribution Width 12.9 % (12.1-15.1); White Blood Count 8.7 10^3/uL (4.0-10.0)
[2022-05-22 05:31] LABS: Alanine Aminotransferase 26 U/L (0-41); Albumin Level 2.8 g/dL (3.5-5.2); Alkaline Phosphatase 55 U/L (40-130); Anion Gap 13.7 (5-19); Aspartate Amino Transferase 38 U/L (0-40); Blood Urea Nitrogen 28 mg/dL (8-23); Calcium 8.3 mg/dL (8.5-10.5); Carbon Dioxide 25 mmol/L (22-29); Chloride 103 mmol/L (98-107); Globulin 3.1 g/dL (1.3-4.6); Glucose 144 mg/dL (65-115); Osmolality Calculated 294 mOsm/kg (285-295); Potassium 3.7 mmol/L (3.5-5.1); Sodium 138 mmol/L (136-145); Total Bilirubin 1.9 mg/dL (0.15-1.2); Total Protein 5.9 g/dL (6.6-8.7)
[2022-05-22] MEDS: remdesivir 100 MG in sodium chloride 0.9% (100 ml) 80 ML IV (05:42)
[2022-05-22] MEDS: budesonide 0.5 mg/2 mL Neb INHALATION ×2 (08:27→20:29)
[2022-05-22] MEDS: ferrous gluconate 324 mg Tablet PO ×2 (09:39→18:45)
[2022-05-22] MEDS: amlodipine 5 mg Tablet PO (09:39)
[2022-05-22] MEDS: docusate sodium 100 mg Capsule PO ×2 (09:39→18:45)
--- NOTE | 2022-05-22 10:34 | PC.SOCIAL ---
Imm update Imm updated with patient. Copy of page 2 provided. Patient verbalized understanding. Copy in chart initialed, dated and timed.
--- NOTE | 2022-05-22 13:01 | PM.PN ---
Subjective Subjective: No acute events. Patient continues to improve. Looks stronger and more active today. Worked better with physical therapy but still severely deconditioned. Sitting in recliner after physical therapy today. Has remained hemodynamically stable and afebrile in last 24 hours. Vitals/I&O/Wt Last Vital Signs Temp 98.2 F 05/22/22 08:00 Pulse 77 05/22/22 08:00 Resp 18 05/22/22 08:00 BP 137/83 05/22/22 08:00 Pulse Ox 93 05/22/22 08:00 O2 Del Method 05/22/22 08:00 O2 Flow Rate 4 05/22/22 07:39 05/21/22 05/22/22 05/22/22 22:59 06:59 14:59 Intake Total 240 / 1677.5 1000 / 2677.5 340 / 340 Output Total 700 / 700 350 / 1050 Balance -460 / 977.5 650 / 1627.5 340 / 340 Weight last 48 hrs Weight 83.688 kg Physical Exam Narrative: General: No acute distress, slightly confused, slow to respond, hard of hearing, AOx3, NC oxygen supplementation, HEENT: PERRLA, pupils bilaterally equal and reactive Chest: Bilateral bronchial breath sounds all over the lung larson, conductive airways sounds CVS: S1-S2 regular, no murmurs, no tachycardia, no gallops, no rubs Abdomen: Soft, nontender, no organomegaly, bowel sounds present, morbidly obese Neuro: No focal deficits, no facial deformity, Urinary Catheter Management: Gonzalez: Cath Placed During This Visit: yes Reason for Continuing Indwelling Catheter: Other Urinary Catheter Date of Insertion: 05/19/22 Urinary Catheter Time of Insertion: 20:04 Data 05/22/22 04:06 05/22/22 04:06 Micro: Microbiology 05/20/22 19:55 Bacterial Antigens - Final Urine Kidney A&P Assessment and plan (1) Fall: (2) Rhabdomyolysis: (3) COVID-19: (4) Dizziness: (5) Hypertension: (6) Physical deconditioning: (7) Rectus sheath hematoma: (8) Diastolic dysfunction, left ventricle: (9) Elevated lactic acid level: (10) Dehydration: Plan 81-year-old gentleman with unknown past medical history with a possible history of hypertension not followed up with physicians with history of recurrent falls presented to the ER when he once found down for unknown amount of time. Fall: CT head done in the ER ruled out any intracranial hemorrhage or acute stroke. Patient does complain of recurrent dizziness and falls. Will do MRI brain without contrast to rule out posterior circulation stroke versus possible press. Fall precaution, frequent reorientation, aspiration precaution. PT/OT/speech evaluation. B12, folate, TSH levels appreciated. Patient found to be COVID-[address] chest abdomen pelvis results appreciated. Concerning for rectus sheath hematoma. No further injury seen. Does have bilateral mild pleural effusion. Hypoxia secondary to COVID-19 pneumonia along with possibility of aspiration pneumonia: Mild disease. Oxygen supplementation keeping saturation over 88%. Dexamethasone 6 mg daily. Remdesivir to finish a 3-5 day course. Vitamin C, zinc. DuoNeb every 6 hour, budesonide twice daily Pulmonary toilet with incentive spirometry, flutter valve. We will monitor inflammatory markers including CRP, D-dimer every 48 hours. CTA negative for pulmonary embolism. Patient does have rectus sheath hematoma. We will hold off on any further medical anticoagulation. Check sputum culture, procalcitonin, urine Legionella, bacterial antigen, blood culture. Procalcitonin negative. Low suspicion of bacterial infection for now. For now we will hold off on any further antibiotics. Given hypoxia will try to keep patient as negative as possible. Echocardiogram shows an EF of 55 to 60% with grade 1 diastolic dysfunction, mild TR. Patient is slightly dehydrated along with rhabdomyolysis. Continue with IV fluids at 75 cc/h. Watch for fluid overload. Strict input output charting, daily weights. Rhabdomyolysis: Most likely in setting of fall. Start on normal saline at 75 cc/h. Monitor for fluid overload. Monitor BMP daily. High blood pressure: Goal blood pressure less than 140/90 mmHg. We will start antihypertensives as for goal blood pressures. Analgesia: Tylenol as needed Glycemic control: A1c 4.8. Not needed. Nutrition: Dysphagia level 4 diet. CODE STATUS: Discussed in detail with the patient. Full code. He lives by himself. He would want his landlady Ms. Lou to make medical decisions in case he is not able to make his own. PUD prophylaxis: Famotidine DVT prophylaxis: Heparin 5000 every 12 hourly. Will need to do medical reconciliation possibly with getting in touch with his house lady to find out about primary care physician or pharmacy. Discharge planning: Patient and patient's family agreeable for SNF placement. Choices taken. Continue care at [facility] with telemetry Plan for the day: Continue with PT/OT and speech evaluation. Continue advance diet as per speech therapy. Continue with IV fluids. Repeat CPK in a.m. Continue with remdesivir to finish a 5-day course. Continue with dexamethasone and nebulization treatment. Blood pressure better controlled. Continue with amlodipine 5 mg oral daily. This documentation was created by [employer] fork lift truck operator software. Every effort was made to ensure accuracy of fork lift truck operator. Any obvious errors or omissions should be clarified with the author of the document. Attestations Medical Necessity Statement*: Requires further hospitalization for management of severe physical deconditioning leading to fall in an elderly patient with COVID-19 who is at a high risk of fall and recurrent admissions while safe discharge planning is sought. Diagnoses Fall W19.XXXA Rhabdomyolysis M62.82 COVID-19 U07.1 Dizziness R42 Hypertension I10 Physical deconditioning R53.81 Rectus sheath hematoma S30.1XXA Diastolic dysfunction, left ventricle I51.9 Elevated lactic acid level R79.89 Dehydration E86.0
[2022-05-23] VITALS (8 sets, daily range): BP systolic 134–162; BP diastolic 77–91; PULSE 71–80; RESP 16–30; TEMP 36.5–36.9; O2SAT 92–96
[2022-05-23] MEDS: dexamethasone 10 mg/mL INJ 6 MG IVP (00:02)
[2022-05-23] MEDS: scopolamine 1.5 Patch 1 PATCH TRANSDERMA (00:04)
--- NOTE | 2022-05-23 00:09 | PC.NURSE ---
New scopolamine transdermal patch applied behind patient's right ear. Nurse could not locate previous patch, and when patient was asked if he still had a patch on, patient responded No .
[2022-05-23] MEDS: ipratropium-albuterol 3 mL Neb INHALATION ×3 (01:12→20:37)
--- NOTE | 2022-05-23 04:43 | PC.NURSE ---
Patient ambulated with this nurse to the restroom. Activity was poorly tolerated by patient; nurse kept having to encourage patient to stand up tall and cook pickled meat feet.
[2022-05-23 05:29] LABS: Basophils % 0.1 %; Hematocrit 38.8 % (42.0-52.0); Hemoglobin 12.7 g/dL (11.7-16.6); Lymphocytes # 0.2 10^3/uL (0.8-4.8); Mean Corpuscular HGB Conc 32.7 g/dL (30.0-36.0); Mean Corpuscular Volume 91.5 fl (80-94); Mean Platelet Volume 9.9 fL (7.4-10.4); Monocytes # 0.6 10^3/uL (0.2-0.9); Monocytes % 5.7 %; Neutrophils # 9.22 10^3/uL (1.8-7.7); Neutrophils % 91.9 %; Nucleated Red Blood Cells % 0 %; Platelet Count 237 10^3/cmm (130-400); Red Blood Count 4.24 10^6/uL (4.1-5.3); Red Cell Distribution Width 12.8 % (12.1-15.1)
[2022-05-23] MEDS: remdesivir 100 MG in sodium chloride 0.9% (100 ml) 80 ML IV (05:34)
[2022-05-23 05:50] LABS: Alanine Aminotransferase 28 U/L (0-41); Albumin Level 2.7 g/dL (3.5-5.2); Alkaline Phosphatase 59 U/L (40-130); Aspartate Amino Transferase 31 U/L (0-40); Blood Urea Nitrogen 22 mg/dL (8-23); Calcium 8.2 mg/dL (8.5-10.5); Carbon Dioxide 24 mmol/L (22-29); Chloride 103 mmol/L (98-107); Glucose 165 mg/dL (65-115); Osmolality Calculated 293 mOsm/kg (285-295); Sodium 138 mmol/L (136-145); Total Bilirubin 1.7 mg/dL (0.15-1.2); Total Protein 5.7 g/dL (6.6-8.7)
[2022-05-23 05:54] LABS: Creatine Phosphokinase 505 U/L (39-308)
[2022-05-23 06:43] LABS: CKMB 1.9 ng/mL (0-10.4)
[2022-05-23] MEDS: budesonide 0.5 mg/2 mL Neb INHALATION ×2 (08:51→20:38)
[2022-05-23] MEDS: ferrous gluconate 324 mg Tablet PO ×2 (10:41→18:50)
[2022-05-23] MEDS: docusate sodium 100 mg Capsule PO ×2 (10:42→18:50)
[2022-05-23] MEDS: amlodipine 5 mg Tablet PO (10:42)
[2022-05-23] MEDS: acetaminophen 325 mg Tablet 650 MG PO ×2 (10:45→16:26)
--- NOTE | 2022-05-23 12:33 | P.PN_ITS ---
Subjective Subjective: No acute events overnight. Patient continues to improve. Looks more active today. Sitting up in chair today with friend at bedside. Patient is more awake and alert. Denies any nausea, vomiting, headache. Working better with physical therapy. Vitals/I&O/Wt Last Vital Signs Temp 97.8 F 05/23/22 09:28 Pulse 79 05/23/22 09:28 Resp 16 05/23/22 09:28 BP 141/79 05/23/22 09:28 Pulse Ox 95 05/23/22 09:28 O2 Del Method 05/23/22 09:28 O2 Flow Rate 2 05/23/22 08:56 05/22/22 05/23/22 05/23/22 22:59 06:59 14:59 Intake Total 1240 / 1580 100 / 1680 120 / 120 Output Total 1350 / 1350 Balance 1240 / 1580 -1250 / 330 120 / 120 Physical Exam Narrative: General: No acute distress, slightly confused, slow to respond, hard of hearing, AOx3, NC oxygen supplementation, HEENT: PERRLA, pupils bilaterally equal and reactive Chest: Bilateral bronchial breath sounds all over the lung larson, conductive airways sounds CVS: S1-S2 regular, no murmurs, no tachycardia, no gallops, no rubs Abdomen: Soft, nontender, no organomegaly, bowel sounds present, morbidly obese Neuro: No focal deficits, no facial deformity, Urinary Catheter Management: Gonzalez: Cath Placed During This Visit: yes Reason for Continuing Indwelling Catheter: Other Urinary Catheter Date of Insertion: 05/19/22 Urinary Catheter Time of Insertion: 20:04 Data 05/23/22 05:23 05/23/22 05:23 A&P Assessment and plan (1) Fall: (2) Rhabdomyolysis: (3) COVID-19: (4) Dizziness: (5) Hypertension: (6) Physical deconditioning: (7) Rectus sheath hematoma: (8) Diastolic dysfunction, left ventricle: (9) Elevated lactic acid level: (10) Dehydration: Plan 81-year-old gentleman with unknown past medical history with a possible history of hypertension not followed up with physicians with history of recurrent falls presented to the ER when he once found down for unknown amount of time. Fall: CT head done in the ER ruled out any intracranial hemorrhage or acute stroke. Patient does complain of recurrent dizziness and falls. MRI brain ruled out stroke. Fall precaution, frequent reorientation, aspiration precaution. Continue with PT/OT/speech evaluation. B12, folate, TSH levels appreciated. Patient found to be COVID-[address] chest abdomen pelvis results appreciated. Concerning for rectus sheath hematoma. No further injury seen. Does have bilateral mild pleural effusion. Hypoxia secondary to COVID-19 pneumonia along with possibility of aspiration pne umonia: Mild disease. Oxygen supplementation keeping saturation over 88%. Continue with dexamethasone 6 mg daily for overall 10 days. Remdesivir to finish a 5-day course. Last dose on 05/24. Vitamin C, zinc. DuoNeb every 6 hour, budesonide twice daily Pulmonary toilet with incentive spirometry, flutter valve. CTA negative for pulmonary embolism. Patient does have rectus sheath hematoma. We will hold off on any further medical anticoagulation. Blood cultures so far remain negative. Sputum culture still pending. Procalcitonin, urine Legionella, bacterial antigen negative. Continue to hold off on any further antibiotics. Given hypoxia will try to keep patient as negative as possible. Echocardiogram shows an EF of 55 to 60% with grade 1 diastolic dysfunction, mild TR. Continue with IV fluids at 75 cc/h. Watch for fluid overload. Strict input output charting, daily weights. Rhabdomyolysis: Most likely in setting of fall. Resolving. CPK down to 500. Continue with IV fluids as patient's oral intake is still poor. Monitor for fluid overload. Monitor BMP daily. High blood pressure: Goal blood pressure less than 140/90 mmHg. Blood pressures are better. Continue with amlodipine 5 mg oral daily. Analgesia: Tylenol as needed Glycemic control: A1c 4.8. Not needed. Nutrition: Dysphagia level 5 diet. Advance further as per speech evaluation. CODE STATUS: Discussed in detail with the patient. Full code. He lives by himself. He would want his landlady Ms. Lou to make medical decisions in case he is not able to make his own. PUD prophylaxis: Famotidine DVT prophylaxis: Heparin 5000 every 12 hourly. Will need to do medical reconciliation possibly with getting in touch with his house lady to find out about primary care physician or pharmacy. Discharge planning: Plan for transition to SNF given severe physical deconditioning which seems to be improving with physical therapy and treatment. Patient would benefit from SNF transfer for at least few weeks. Patient has been accepted for few facilities and awaiting isolation. To be over given patient to be COVID-19 positive. Plan to transfer to SNF once patient has finished isolation time and if medically appropriate. This documentation was created by [employer] forest fire prevention specialist software. Every effort was made to ensure accuracy of forest fire prevention specialist. Any obvious errors or omissions should be clarified with the author of the document. Attestations Medical Necessity Statement*: Requires further hospitalization for management of physical deconditioning in setting of COVID-19 leading to fall, improving rhabdomyolysis while safe discharge planning is sought. Diagnoses Fall W19.XXXA Rhabdomyolysis M62.82 COVID-19 U07.1 Dizziness R42 Hypertension I10 Physical deconditioning R53.81 Rectus sheath hematoma S30.1XXA Diastolic dysfunction, left ventricle I51.9 Elevated lactic acid level R79.89 Dehydration E86.0
[2022-05-23] MEDS: ascorbic acid 500 mg Tablet PO (18:50)
[2022-05-23] MEDS: sodium chloride 0.9% 1,000 ML 75 ML IV (21:14)
[2022-05-24] MEDS: dexamethasone 10 mg/mL INJ 6 MG IVP (01:56)
[2022-05-24 04:00] VITALS: BP 166/93; PULSE 77; RESP 29; TEMP 36.9; O2SAT 94
[2022-05-24] MEDS: remdesivir 100 MG in sodium chloride 0.9% (100 ml) 80 ML IV (05:18)
[2022-05-24 08:00] VITALS: PULSE 76; RESP 15; TEMP 36.6; O2SAT 93
--- NOTE | 2022-05-24 09:34 | P.DS_ITS ---
Discharge Providers Date of Admission: 05/19/22 22:05 Date of Discharge: May 24, 2022 Attending Provider at Admission: Dima Clemente MD Attending Provider at Discharge: Dima Clemente MD Diagnoses at Discharge Discharge Diagnosis (1) Fall: Status: Acute (2) Rhabdomyolysis: Status: Acute (3) COVID-19: Status: Acute (4) Dizziness: Status: Acute (5) Hypertension: Status: Acute (6) Physical deconditioning: Status: Acute (7) Rectus sheath hematoma: Status: Acute (8) Diastolic dysfunction, left ventricle: Status: Acute (9) Elevated lactic acid level: Status: Acute (10) Dehydration: Status: Acute Reason for Visit Reason for Visit: FALL Hospital Course Hospital Course History partially taken through conversation with ER physician and with patient. Rafy Marx is a 81 year old male with no known past medical history other than possible hypertension for which she does not take any medication presented to the ER today after he was found down by his landlady for unknown amount of time soaked in urine today evening.? Last known normal was yesterday.? In the ER patient was complaining of back pain and feeling cold. On examination on [facility] floor patient is a lot more awake and alert, able to have slight conversation, slow to respond, slightly confused, alert and oriented to self, place.? He is able to tell that he has been having multiple falls recently as he thinks his equilibrium is off.? He does not remember how he fell this time but thinks he fell while he was working in his yard over the [facility].? He states he has a history of high blood pressure but does not take any medications.? He does not follow-up with any family doctor.? Currently denies any nausea, vomiting, headache, diarrhea, dysuria difficulty in breathing though he is on 3 L oxygen supplementation.? Does not use any oxygen at baseline.? He does complain of on and off dizziness which he attributes to daily use of Claritin. Patient was sent to the hospital for evaluation and management. On admission patient was found to have rhabdomyolysis from fall and was found to be COVID-19 positive. On admission patient was also found to be dehydrated along with lactic acidosis for which he was started on IV hydration. Rhabdomyolysis has gradually resolved. Stroke was ruled out with negative CT head and MRI brain. For COVID-19 mild disease he started on IV dexamethasone and remdesivir along with inhalation treatment. As hypoxia is most likely secondary to combination of altered mental status, COVID-19 and possible aspiration pneumonia. Patient was seen by PT/OT/speech therapy team. Diet was advanced gradually as per speech therapy and is currently on dysphagia level [address] abdomen pelvis which was consistent with rectus sheath hematoma. Gradually he has dizziness and weakness is improving. His hemoglobin remained stable during hospitalization. He continued to work with physical therapy and has been gradually improving. Patient's hospitalization has otherwise been unremarkable. During hospitalization he was found to have mildly elevated blood pressures for which amlodipine has not been added to the medication list. Given the scenario presentation to the hospital along with recurrent falls and severe physical deconditioning for discharge plan were discussed with patient and his caregiver in detail. They are both agreeable for SNF placement. He has been discharged hemodynamically stable condition to SNF for further rehabilitation. Patient's last day of IV remdesivir as 05/24. Physical Exam Narrative: General: No acute distress, slightly confused, slow to respond, hard of hearing, AOx3, NC oxygen supplementation, HEENT: PERRLA, pupils bilaterally equal and reactive Chest: Bilateral bronchial breath sounds all over the lung larson, conductive airways sounds CVS: S1-S2 regular, no murmurs, no tachycardia, no gallops, no rubs Abdomen: Soft, nontender, no organomegaly, bowel sounds present, morbidly obese Neuro: No focal deficits, no facial deformity, Urinary Catheter Management: Gonzalez: Cath Placed During This Visit: yes Reason for Continuing Indwelling Catheter: Other Urinary Catheter Date of Insertion: 05/19/22 Urinary Catheter Time of Insertion: 20:04 Discharge Data Studies Completed and Pending Completed Studies During Hospitalization Category Date Time Status CT cervical spin wo con* [id number] Routine Cat Scan 05/21/22 10:[address] [place] [id number] Routine Cat Scan 05/20/22 22:[address] head wo con* [id number] Stat Cat Scan 05/19/22 19:06 Completed XR chest 1V portable [id number] Stat Exams 05/19/22 19:06 Completed MR head wo con* [id number] Routine MRI 05/20/22 09:33 Completed CV. echo complete* [id number] Routine Ultrasound 05/20/22 21:48 Completed Pending at discharge Category Date Time Status Blood Culture Stat Lab 05/19/22 20:12 Results Sputum Culture and Gram Stain Stat Lab 05/20/22 13:33 Uncollected Radiology Impressions Chest X-Ray 05/19/22 19:06 IMPRESSION: No acute findings. Head CT 05/19/22 19:06 IMPRESSION: No acute intracranial abnormality. Head MRI 05/20/22 09:33 IMPRESSION: 1. Diffusion-weighted imaging is normal. No acute infarct. No hemorrhage. 2. Moderate atrophy with severe chronic white matter disease. 3. RIGHT maxillary sinus disease. Chest/Abdomen/Pelvis CT 05/20/22 22:45 IMPRESSION: 1. Small LEFT greater than RIGHT pleural effusions. Bibasilar atelectasis. 2. Small amount of hematoma along the LEFT rectus sheath inferiorly. 3. No free fluid in the abdomen or pelvis. 4. Gonzalez catheter with enlarged prostate. 5. No other acute findings. Notified Dima Clemente MD at 05/20/2022 9:[address] 05/21/22 10:59 IMPRESSION: No evidence of acute fracture or dislocation. Normal cervical spine. Microbiology 05/20/22 19:55 Urine Kidney Bacterial Antigens - Final 05/20/22 19:55 Unknown Source Legionella Urinary Antigen - Final 05/19/22 20:12 Blood Blood Culture - Preliminary NEGATIVE TO DATE 05/19/22 19:21 Blood Blood Culture - Preliminary NEGATIVE TO DATE Echocardiogram: CONCLUSIONS ?Technically limited quality echocardiogram because of poor ?ultrasonic windows. ?LV systolic function is normal with EF of 55 to 60%. ?Grade 1 diastolic dysfunction. ?Mild tricuspid regurgitation. ?No comparison studies are available ?Julien Rodriguez MD ?(Electronically Signed) ?Final Date:? ? ? 20 May 2022 ? 13:09 Laboratory Results WBC 10.0 10^3/uL (4.0-10.0) 05/23/22 05:23 RBC 4.24 10^6/uL (4.1-5.3) 05/23/22 05:23 Hgb 12.7 g/dL (11.7-16.6) 05/23/22 05:23 Hct 38.8 % (42.0-52.0) L 05/23/22 05:23 MCV 91.5 fl (80-94) 05/23/22 05:23 MCH 30.0 pg (28.0-34.0) 05/23/22 05: MCHC 32.7 g/dL (30.0-36.0) 05/23/22 05: RDW 12.8 % (12.1-15.1) 05/23/22 05:23 Plt Count 237 10^3/cmm (130-400) 05/23/22 05:23 MPV 9.9 fL (7.4-10.4) 05/23/22 05:23 Neut % (Auto) 91.9 % 05/23/22 05:23 Lymph % (Auto) 2.0 % 05/23/22 05:23 [place] % (Auto) 5.7 % 05/23/22 05:23 Eos % (Auto) 0.0 % 05/23/22 05:23 Baso % (Auto) 0.1 % 05/23/22 05:23 Neut # (Auto) 9.22 10^3/uL (1.8-7.7) H 05/23/22 05:23 Lymph # (Auto) 0.2 10^3/uL (0.8-4.8) L 05/23/22 05:23 [place] # (Auto) 0.6 10^3/uL (0.2-0.9) 05/23/22 05:23 Eos # (Auto) 0.0 10^3/uL (0.0-0.8) 05/23/22 05:23 Baso # (Auto) 0.0 10^3/uL (0.0-0.1) 05/23/22 05:23 Nucleated RBC % (auto) 0 % 05/23/22 05:23 Total Counted 100 (0-100) 05/21/22 06:26 Atypical Lymphs % 0.0 % (0-5) 05/21/22 06:26 Absolute Neutrophils 7.4 10^3/cmm (1.4-6.5) H 05/21/22 06:26 Segmented Neutrophils 48 % 05/21/22 06:26 Abs Segm Neuts (Man) 3.6 10/cmm (1.6-7.1) 05/21/22 06:26 Band Neutrophils 49.0 % 05/21/22 06:26 Abs Band Neuts (Man) 3.7 10^3/cmm (0.0-1.2) H 05/21/22 06:26 Absolute Lymphocytes 0.2 10^3/cmm (1.2-3.4) L 05/21/22 06:26 Lymphocytes (Manual) 2 % 05/21/22 06:26 Monocytes (Manual) 1.0 % 05/21/22 06:26 Absolute Monocytes 0.1 10^3/cmm (0.1-0.6) 05/21/22 06:26 Eosinophils (Manual) 0 % 05/21/22 06:26 Absolute Eosinophils 0.0 10^3/cmm (0.0-0.7) 05/21/22 06:26 Basophils (Manual) 0.0 % 05/21/22 06: Absolute Basophils 0.0 10^3/cmm (0.0-0.2) 05/21/22 06:26 Nucleated RBCs # 0.0 /100WBC 05/23/22 05:23 Platelet Estimate Normal (Normal) 05/21/22 06:26 D-Dimer 1.67 ug/mIFEU (0-0.59) H 05/19/22 21:34 Sodium 138 mmol/L (136-145) 05/23/22 05:23 Potassium 4.0 mmol/L (3.5-5.1) 05/23/22 05:23 Chloride 103 mmol/L (98-107) 05/23/22 05:23 Carbon Dioxide 24 mmol/L (22-29) 05/23/22 05:23 Anion Gap 15.0 (5-19) 05/23/22 05:23 BUN 22 mg/dL (8-23) 05/23/22 05:23 Creatinine 0.6 mg/dL (0.7-1.2) L 05/23/22 05:23 GFR Calculation Not Reportable 05/23/22 05:23 Glucose 165 mg/dL (65-115) H 05/23/22 05:23 POC Glucose 115 mg/dL (70-110) H 05/20/22 16:26 Estimat Average Glucose 91 05/20/22 01:42 Hemoglobin A1c 4.8 % (4.0-6.0) 05/20/22 01:42 Calculated Osmolality 293 mOsm/kg (285-295) 05/23/22 05:23 Lactate 2.5 mmol/L (0.5-2.2) H 05/19/22 19:21 Calcium 8.2 mg/dL (8.5-10.5) L 05/23/22 05:23 Phosphorus 4.1 mg/dL (2.5-4.5) 05/20/22 01:42 Magnesium 2.0 mg/dL (1.7-2.3) 05/20/22 01:42 Iron 17 ug/dL (59-158) L 05/20/22 01:42 TIBC 255 mcg/dl 05/20/22 01:42 % Saturation 6.6 % (20-50) L 05/20/22 01:42 Unsat Iron Binding 238 ug/dL (112-347) 05/20/22 01:42 Total Bilirubin 1.7 mg/dL (0.15-1.2) H 05/23/22 05:23 AST 31 U/L (0-40) 05/23/22 05:23 ALT 28 U/L (0-41) 05/23/22 05:23 Alkaline Phosphatase 59 U/L (40-130) 05/23/22 05:23 Creatine Kinase 505 U/L (39-308) H* 05/23/22 05:23 CK-MB (CK-2) 1.9 ng/mL (0-10.4) 05/23/22 05:23 CK-MB (CK-2) Rel Index % (0.0-5.3) 05/23/22 05:23 Troponin T Baseline 22 ng/L (0-15) H 05/19/22 19:21 Troponin T 120 Minute 21.31 ng/L (0-15) H 05/19/22 21:34 Delta Troponin T -0.69 ABS# (0-10) L 05/19/22 21:34 Troponin T Hi Sens 6Hr 22.01 ng/L (0-15) H 05/20/22 01:42 Troponin T Hi Sens 6Hr Delta 0.01 ng/L (0-12) 05/20/22 01:42 C-Reactive Protein 78.8 mg/L (0.0-4.9) H 05/19/22 21:34 NT-Pro-B Natriuret Pep 2102 pg/mL (0-450) H 05/19/22 19:21 Total Protein 5.7 g/dL (6.6-8.7) L 05/23/22 05: Albumin 2.7 g/dL (3.5-5.2) L 05/23/22 05: Globulin 3.0 g/dL (1.3-4.6) 05/23/22 05: Triglycerides 48 mg/dL (0-150) 05/20/22 01:42 Cholesterol 146 mg/dL (0-200) 05/20/22 01:42 LDL Cholesterol, Calc 81 mg/dL (50-129) 05/20/22 01:42 HDL Cholesterol 55 mg/dL (60-100) L 05/20/22 01:42 LDL/HDL Ratio 1.47 RATIO (0.00-3.22) 05/20/22 01:42 Cholesterol/HDL Ratio 2.65 mg/dL (1.0-5.00) 05/20/22 01:42 Vitamin B12 547 pg/mL (232-1245) 05/19/22 21:34 Folate 15.7 ng/mL (4.5-32.2) 05/19/22 21:34 Procalcitonin 0.14 ng/mL (0-0.5) 05/19/22 21:34 TSH 1.31 uIU/mL (0.27-4.20) 05/19/22 19:21 Urine Color Yellow (Yellow) 05/19/22 19:55 Urine Appearance Clear (CLEAR) 05/19/22 19:55 Urine pH 5 (5-7) 05/19/22 19:55 Ur Specific [place] 1.025 (1.005-1.030) 05/19/22 19:55 Urine Protein 1+ (Negative) H 05/19/22 19:55 Urine Glucose (UA) Norm (Normal) 05/19/22 19:55 Urine Ketones 3+ (Negative) H 05/19/22 19:55 Urine Blood 3+ (Negative) H 05/19/22 19:55 Urine Nitrate Negative (Negative) 05/19/22 19:55 Urine Bilirubin Neg (Negative) 05/19/22 19:55 Urine Urobilinogen Neg mg/dL (Negative) 05/19/22 19:55 Ur Leukocyte Esterase Negative (Negative) 05/19/22 19:55 Urine RBC 5-10 /hpf (0-2) H 05/19/22 19:55 Urine WBC 0-4 /hpf (0-5) H 05/19/22 19:55 Ur Squamous Epith Cells 0-4 /hpf (0-5) H 05/19/22 19:55 Amorphous Sediment Not Reportable 05/19/22 19:55 Urine Bacteria Trace /hpf (NONE) 05/19/22 19:55 Urine Mucus Trace /hpf 05/19/22 19:55 Nasal Influ A H1 2009 PCR Not detected (NOT DETECT) 05/19/22 22:20 Salicylates < 0.3 mg/dL (3-10) L 05/19/22 21:34 Urine Opiates Screen Negative ng/mL (Negative) 05/19/22 19:55 Acetaminophen < 5.0 ug/mL (10-30) L 05/19/22 21:34 Ur Barbiturates Screen Negative ng/mL (Negative) 05/19/22 19:55 Ur Phencyclidine Scrn Negative ng/mL (Negative) 05/19/22 19:55 Ur Amphetamines Screen Negative ng/mL (Negative) 05/19/22 19:55 U Benzodiazepines Scrn Negative ng/mL (Negative) 05/19/22 19:55 Urine Cocaine Screen Negative ng/mL (Negative) 05/19/22 19:55 U Marijuana (THC) Screen Negative ng/mL (Negative) 05/19/22 19:55 Ethyl Alcohol < 10 mg/dL (0-10) 05/19/22 21:34 Adenovirus (PCR) Not detected (NOT DETECT) 05/19/22 22:20 C. pneumoniae DNA (PCR) Not detected (NOT DETECT) 05/19/22 22:20 Coronavirus 229E (PCR) Not detected (NOT DETECT) 05/19/22 22:20 Human Metapneumovir PCR Not detected (NOT DETECT) 05/19/22 22:20 Influenza A (H1) PCR Not detected (NOT DETECT) 05/19/22 22:20 Influenza A (H3) PCR Not detected (NOT DETECT) 05/19/22 22:20 Influenza Type A (PCR) Not detected (NOT DETECT) 05/19/22 22:20 Influenza Type B (PCR) Not detected (NOT DETECT) 05/19/22 22:20 M. pneumoniae (PCR) Not detected (NOT DETECT) 05/19/22 22:20 Parainfluenza 1 (PCR) Not detected (NOT DETECT) 05/19/22 22:20 Parainfluenza 2 (PCR) Not detected (NOT DETECT) 05/19/22 22:20 Parainfluenza 3 (PCR) Not detected (NOT DETECT) 05/19/22 22:20 Parainfluenza 4 (PCR) Not detected (NOT DETECT) 05/19/22 22:20 RSV Type A (PCR) Not detected (NOT DETECT) 05/19/22 22:20 RSV Type B (PCR) Not detected (NOT DETECT) 05/19/22 22:20 Entero/Rhino (PCR) Not detected (NOT DETECT) 05/19/22 22:20 SARS-CoV-2 (PCR) Detected (NOT DETECT) A 05/19/22 22:20 Vitals Last Vital Signs Temp 97.8 F 05/24/22 08:00 Pulse 76 05/24/22 08:00 Resp 15 05/24/22 08:00 BP 166/93 05/24/22 04:00 Pulse Ox 93 05/24/22 08:00 O2 Del Method 05/24/22 08:00 O2 Flow Rate 2 05/24/22 04:00 Discharge Plan Discharge Patient Disposition: Xfer SNF Condition: Stable Prescriptions: New Vitamin C 500 mg Tablet 500 mg PO BID 14 Days Qty: 28 0RF zinc gluconate 50 mg Tablet 50 mg PO DAILY Qty: 14 0RF ferrous gluconate 324 mg (37.5 mg iron) Tablet 324 mg PO BIDWM Qty: 60 0RF Advair Diskus 250-50 mcg/dose blister with device 1 inh inhalation BID 14 Days Qty: 28 0RF Spiriva Respimat 2.5 mcg/actuation mist 2 inh inhalation Q24H Qty: 4 0RF amlodipine 10 mg tablet 10 mg PO DAILY Qty: 30 0RF Robitussin Cough-Chest Aleksandr DM 5-50 mg/5 mL liquid 20 ml PO Q6H Qty: 118 0RF Discharge Orders: Discharge Order (Routine); Ordered 05/24/22 Ordered By: Dima Clemente Discharge Activity: Resume usual activity and Increase activity as tolerated Patient Instructions: Amlodipine (By mouth), Tiotropium (By breathing), Zinc Supplement (By mouth), Opioid Safety Activity Restrictions/Additional Instructions: Dysphagia 5 level diet. Follow-up with primary care provider within next 1 week. Patient's Health Concerns: Take amlodipine 10 mg daily for blood pressure. Take Advair and Spiriva which is inhalation treatment for next 2 weeks along with oral vitamin C and zinc. Please continue work with physical therapy. Please advance diet as per speech therapy. Discharge Attestations Time Spent in Discharge Care*: greater than 30 min Specific Discharge Activities: educating patient, educating and/or supporting family/caregiver, discussing with pcp/other providers, discussing with case therapist/social workers/dc planners, documenting/other paperwork and evaluating patient/reviewing data Status at Discharge: Cognitive status at discharge: cognitively intact , Behavioral status at discharge: cooperative , Functional status at discharge: other assisted ambulation , Overall status at discharge: patient is progressing back to baseline Quality Metrics Clinical Quality Measures [ No reported AMI, CVA or VTE this stay] Coding Level of Care Code 49789 Total time (in minutes) for Discharge: 60 Diagnoses Fall W19.XXXA Rhabdomyolysis M62.82 COVID-19 U07.1 Dizziness R42 Hypertension I10 Physical deconditioning R53.81 Rectus sheath hematoma S30.1XXA Diastolic dysfunction, left ventricle I51.9 Elevated lactic acid level R79.89 Dehydration E86.0
[2022-05-24] MEDS: docusate sodium 100 mg Capsule PO (09:47)
[2022-05-24] MEDS: ascorbic acid 500 mg Tablet PO (09:47)
[2022-05-24] MEDS: amlodipine 5 mg Tablet PO (09:47)
[2022-05-24] MEDS: ferrous gluconate 324 mg Tablet PO (09:47)
[2022-05-24] MEDS: zinc gluconate 50 mg Tablet PO (09:47)
--- NOTE | 2022-05-24 11:36 | PC.NURSE ---
report called to coleen at [facility].
[2022-05-24 12:39] VITALS: PULSE 76; RESP 15; TEMP 36.6; O2SAT 93
== END 2022-05-24 12:41 | disposition skilled nursing facility (03) | DRG 177 ==
LOC: ER 19:46 → MEDSURG 22:06
PROVIDERS: Admitting Provider Student in an Organized Health Care Education/Training Program; Emergency Provider Emergency Medicine; Visit Provider Student in an Organized Health Care Education/Training Program
DX: U07.1 COVID-19 (principal); J12.82 Pneumonia due to coronavirus disease 2019; J69.0 Pneumonitis due to inhalation of food and vomit; M62.82 Rhabdomyolysis; E86.0 Dehydration; I11.9 Hypertensive heart disease without heart failure; S30.1XXA Contusion of abdominal wall, initial encounter; W19.XXXA Unspecified fall, initial encounter; R29.6 Repeated falls; R42 Dizziness and giddiness; R41.82 Altered mental status, unspecified; R53.81 Other malaise; R13.10 Dysphagia, unspecified; R09.02 Hypoxemia; Z87.891 Personal history of nicotine dependence
CPT/HCPCS: 36415; 36416; 51702; 70450; 70551; 71045; 71250; 72125; 74176; 80053; 80061; 80306; 80307; 81001; 82550; 82553; 82607; 82746; 82962; 83036; 83540; 83550; 83605; 83735; 83880; 84100; 84145; 84443; 84484; 85007; 85025; 85378; 86140; 86403; 87040; 87449; 87486; 87581; 87633; 92507; 92523; 92526; 92610; 93005; 93306; 94640; 96372; 96374; 97110; 97116; 97161; 97167; 97530; 97535; 99285; J0248; J1100; J1644; J3490; J7030; J7626